=== PATIENT | female | born 1945 | race Caucasian/White ===

== ENCOUNTER 2020-08-29 15:30 | Emergency (ER) | payer MEDICARE, OTHER ==
[~2020-08-29 15:30] MED LIST: 8 HOUR PAIN RE650 MG PO; ACCUPRIL5 MG PO; ACETAMINOPHEN650 MG PR; ARICEPT10 MG PO; ASPIRIN81 MG PO; ATIVAN0.5 MG PO; ATIVAN2 MG PO; COREG 3.125M3.125 MG PO; CYANOCOBAL1000 MCG/1 INJ; ESCITALOPRAM OX20 MG PO; FAST RELIEF LAX10 MG PR; IPRAT-ALBUT 0.5-3 ML INH; K-TAB ER20 MEQ PO; LACTULOSE20 GM/30 M PO; LASIX20 MG PO; LEXAPRO TAB 1010 MG PO; LIPITOR TAB 1010 MG PO; MACROBID 100 M100 MG PO; MIRAPEX1 MG PO; NAMENDA10 MG PO; NEURONTIN 100100 MG PO; NORCO 5-325 TA1 EACH PO; SANTYL OINT 3030 GM TP; SEROQUEL25 MG PO; SYNTHROID 25 M25 MCG PO; THERAGRAN M TAB1 EA PO; TYLENOL 500 MG500 MG PO; TYLENOL WITH C1 EACH PO; VITAMIN B-121000 MC3 INJ; VITAMIN D32000 UNI1 PO; ZOSYN 3.3753.375 G1 IV
[2020-08-29 16:33] LABS: HEMOGLOBIN 15.6 gm/dl (12.3-15.3); RED BLOOD COUNT 5.09 M/UL (4.00-5.10); WHITE BLOOD COUNT 21.1 K/UL (4.5-11.0)
[2020-08-29 16:57] LABS: BUN/CREATININE RATIO 38 (0-10)
[2020-08-29] MEDS ORDERED: LEVOFLOXACIN500 MG PO (17:45)
== END 2020-08-29 18:42 | disposition home or self-care (01) ==
LOC: ER1 15:30
PROVIDERS: Family Medicine
DX: R20.2 Paresthesia of skin (principal); N39.0 Urinary tract infection, site not specified; D72.829 Elevated white blood cell count, unspecified; F03.90 Unspecified dementia, unspecified severity, without behavioral disturbance, psychotic disturbance, mood disturbance, and anxiety; I11.0 Hypertensive heart disease with heart failure; I50.20 Unspecified systolic (congestive) heart failure; Z79.899 Other long term (current) drug therapy; Z88.1 Allergy status to other antibiotic agents
CPT/HCPCS: 71045; 80053; 81001; 82550; 82553; 83605; 83690; 83735; 83874; 84439; 84443; 84484; 85025; 85610; 87040; 93005; 96374; 99284; J2185